=== PATIENT | male | born 1940 | race Caucasian/White ===

== ENCOUNTER 2016-10-15 11:26 | Day surgery (SDC) | payer MEDICARE ==
[~2016-10-15 11:26] MED LIST: Lactated Ringers 1,000 ML IV SCH; Lidocaine 1%/Sod Bicarbonate in NS 8.4% 1 ML Syringe IV PRN; Sodium Chloride 0.9% 10 ML Syringe FLUSH PRN
[2016-10-15] MEDS ORDERED: Ropivacaine 0.5% 5 MG/ML 30 ML SDV ONE (12:10)
[2016-10-15] MEDS ORDERED: EPINEPHrine 1:1000 1 MG/ML SDV ONE (12:10)
[2016-10-15] MEDS ORDERED: EPINEPHrine 1:1000 1 MG/ML 30 ML MDV ONE (12:14)
[2016-10-15] MEDS ORDERED: Bupivacaine 0.25% 30 ML SDV ONE (12:15)
--- NOTE | 2016-10-15 12:28 | PCM.PREANE ---
Preanesthetic Assessment - Anesthesia/Transfusion/Family Hx Anesthesia History: Prior Anesthesia Without Reaction Type of Anesthesia Reaction: Other (see below) Family History of Anesthesia Reaction: No Transfusion History: Prior Transfusion Without Reaction Type of Transfusion Reactions: Reports: Other (see below) - Review of Systems General: No Symptoms Pulmonary: Shortness of Breath (on occasion) Cardiovascular: Chest Pain (chest at rest on occasion, has used nitroglycerin 1time 1 month ago, PCP aware of all of this), Other (htn, s/p AORTIC ANEURYSM REPAIR VIA STENT PLACEMENT) Gastrointestinal: Other (reflux) Neurological: No Symptoms, Numbness (IN FEET S/P BACK SURGERIES) Other: Reports: Easy Bruising (PLAVIX USER, OFF 7 DAYS) - Physical Assessment NPO Status Date: 10/15/16 NPO Status Time: 05:30 Pulse: 72 O2 Sat by Pulse Oximetry: 94 Respiratory Rate: 16 Blood Pressure: 130/73 Temperature: 97.8 C ASA Class: 3 Mental Status: Alert & Oriented x3 Airway Class: Mallampati = 2 Dentition: Reports: Normal Dentition Thyro-Mental Finger Breadths: 3 Mouth Opening Finger Breadths: 3 ROM/Head Extension: Limited/Partial Lungs: Clear to auscultation, Normal respiratory effort Cardiovascular: Regular Rate, Regular Rhythm - Lab Values: Laboratory Last Values MRSA (PCR) Negative 10/02/16 14:36 - Allergies Allergies/Adverse Reactions: Allergies Allergy/AdvReac Type Severity Reaction Status Date / Time No Known Allergies Allergy Verified 10/14/16 14:06 - Blood Blood Available: No Product(s) Available: None - Anesthesia Plan Pre-Op Medication Ordered: None Beta Parul: Metoprolol Med Last Dose Date: 10/15/16 Med Last Dose Time: 08:00 - Acknowledgements Anesthesia Type Planned: General Anesthesia Pt an Appropriate Candidate for the Planned Anesthesia: Yes Alternatives and Risks of Anesthesia Discussed w Pt/Guardian: Yes Pt/Guardian Understands and Agrees with Anesthesia Plan: Yes PreAnesthesia Questionnaire HEENT History: Reports: Other (see below) Other HEENT History: left eustachian tube dysfunction, crystal lens surgery Cardiovascular History: Reports: Aneurysm, CAD, High cholesterol, Hypertension, Stents Other Cardiovascular History: aortic anurysms, peripheral artery disase Respiratory History: Reports: SOB Genitourinary History: Reports: Chronic renal insuffiency, Other (see below) Other Genitourinary History: renal artery stent, frequency [place] [facility] History: Reports: None Musculoskeletal History: Reports: Back pain, chronic Other Musculoskeletal History: shoulder impingement Neurological History: Reports: None Psychiatric History: Reports: Other (see below) Other Psychiatric History: insomnia Endocrine/Metabolic History: Reports: None Hematologic History: Reports: None Immunologic History: Reports: None Oncologic (Cancer) History: Reports: None Dermatologic History: Reports: None - Past Surgical History Cardiovascular Surgical History: Reports: Other (see below) Other Cardiovascular Surgeries/Procedures: aortic endograft, bypass, stent placements GI Surgical History: Reports: Colonoscopy - SUBSTANCE USE Smoking Status *Q: Former Smoker Recreational Drug Use History: No - HOME MEDS Home Medications: Home Meds Aspirin/Calcium Carbonate/Mag [Aspirin Buffered 325 mg Tab] 325 mg PO DAILY [History] Cholecalciferol (Vitamin D3) [Vitamin D3] 2,000 unit PO DAILY 10/14/16 [History] Clopidogrel [Plavix] 75 mg PO DAILY 10/14/16 [History] Lansoprazole [Prevacid] 15 mg PO BID 10/14/16 [History] Lisinopril 20 mg PO DAILY 10/14/16 [History] Metoprolol Succinate 50 mg PO BID 10/14/16 [History] NIFEdipine [Procardia Xl] 60 mg PO DAILY 10/14/16 [History] Naproxen Sodium [Aleve] 1 - 3 tab PO Q6H PRN 10/14/16 [History] Rosuvastatin Calcium [Crestor] 40 mg PO BEDTIME 10/14/16 [History] Ubidecarenone [Coq-10] 100 mg PO DAILY 10/14/16 [History] Zolpidem [Ambien] 10 mg PO BEDTIME 10/14/16 [History] atorvaSTATin [Lipitor] 40 mg PO DAILY 10/14/16 [History] oxyCODONE HCl/Acetaminophen [Percocet 2.5-325 mg Tablet] 1 - 2 each PO Q6H PRN # 40 tablet 10/15/16 [Rx] - CURRENT (IN HOUSE) MEDS Current Meds: Current Medications Lactated Ringer's (Ringers, Lactated) 1,000 mls @ 125 mls/hr IV ASDIRECTED KARIS Stop: 10/15/16 23:00 Lidocaine/Sodium Bicarbonate (Buffered Lidocaine 1% In Ns 8.4%) 0.25 ml IV ONETIME PRN PRN Reason: Prior to IV Start Stop: 10/15/16 18:00 Sodium Chloride (Saline Flush) 10 ml FLUSH ASDIRECTED PRN PRN Reason: Keep Vein Open Stop: 10/15/16 18:00
[2016-10-15] MEDS ORDERED: Ondansetron 4 MG/2 ML SDV IVPUSH PRN (12:34)
[2016-10-15] MEDS ORDERED: fentaNYL 100 MCG/2 ML SDV IVPUSH PRN (12:34)
[2016-10-15] MEDS ORDERED: Lidocaine 1% 2 ML ONE (12:34)
[2016-10-15] MEDS ORDERED: fentaNYL 100 MCG/2 ML SDV ONE ×2 (12:55→13:48)
--- NOTE | 2016-10-15 13:20 | PCM.SN ---
- Free Text/Narrative Note: Note: 10/15/2016 1300 140/84 67 100% 16 Surgeon and pt request post-op pain control for right shoulder surgery risk of block failure, facial numbness, site infection, and chronic pain discussed with pt and agreed to proceed. All standard monitors est. EKG, BP, Pulse Ox, 2ml O2 and 2ml fentanyl pre-op dx. right shoulder pain post-op dx right shoulder arthroscopy pt for interscalene block placement all standard monitors est. pt ID time out performed IV sedation 1ml fentanyl, 2L NC O2, sterile prep and drape of right neck and shoulder U/S placed with visualization of brachial plexus from clavicle to cricoid local skin infiltration 22ga. Stimplex A insulated needle visualized at brachial plexus nerve stimulator at .9 Dee Amps stop at .3 Dee Amps with good bicep twitch with 1ml NaCl and lose of twitch neg aspirations every 5ml of 0.5% ropivacaine and 1:200,000 epi total of 30ml injected all done with U/S guidance needle withdrawn no complications noted pt tolerated procedure well block settling in start procedure at 1244 end procedure at 1257 148/80 68 100% 14
[2016-10-15] MEDS ORDERED: Ondansetron 4 MG/2 ML SDV ONE ×2 (13:48→16:08)
[2016-10-15] MEDS ORDERED: Sodium Chloride 0.9% 10 ML ONE (13:48)
[2016-10-15] MEDS ORDERED: ceFAZolin 1 GM Vial ONE ×2 (13:48)
[2016-10-15] MEDS ORDERED: Rocuronium 50 MG/5 ML Vial ONE (13:48)
[2016-10-15] MEDS ORDERED: Propofol 200 MG/20 ML SDV ONE (13:48)
[2016-10-15] MEDS ORDERED: ePHEDrine/Normal Saline 25 MG/5 ML Syringe ONE (14:41)
[2016-10-15] MEDS ORDERED: Neostigmine Methylsulfate 10 MG/10 ML MDV ONE (16:05)
--- NOTE | 2016-10-15 16:28 | PCM.POSTAN ---
POST ANESTHESIA ASSESSMENT - MENTAL STATUS Mental Status: alert, oriented - VITAL SIGNS Pulse Rate: 80 SaO2: 96 Resp Rate: 16 Blood Pressure: 143/80 Temperature: 36.8 C - RESPIRATORY Respiratory Status: respiratory rate WNL, airway patent, O2 saturation stable, supplemental oxygen - CARDIOVASCULAR CV Status: pulse rate WNL, blood pressure stable - GASTROINTESTINAL GI Status: no symptoms - PAIN Pain Score: 0 - POST OP HYDRATION Hydration Status: adequate & stable
--- NOTE | 2016-10-15 17:57 | PCM48HPAN ---
Post Anesthesia Note - EVALUATION WITHIN 48HRS OF ANESTHETIC Vital Signs in Normal Range: Yes Patient Participated in Evaluation: Yes Respiratory Function Stable: Yes Airway Patent: Yes Cardiovascular Function Stable: Yes Hydration Status Stable: Yes Pain Control Satisfactory: Yes Nausea and Vomiting Control Satisfactory: Yes Mental Status Recovered: Yes
[2016-10-15 19:36] VITALS: BP 149/93
--- NOTE | 2016-10-22 12:41 | PCM.OPNOTE ---
- General Post-Op/Procedure Note Date of Surgery/Procedure: 10/15/16 Operative Procedure(s): right shoulder video arthroscopy with rotator cuff repair and biceps tenotomy Pre Op Diagnosis: right shoulder rotator cuff tear with biceps tendinopathy Post-Op Diagnosis: Same Anesthesia Technique: General ET tube, Regional block Primary Surgeon: Khanh García Anesthesia Provider: Dionne Gary Statement Distribution Clerk: Nydia Garcia EBL in mLs: 10 Complications: None Condition: Good
--- NOTE | 2016-10-25 09:33 | OR ---
DATE OF OPERATION: 10/15/2016 SURGEON: Khanh García MD OPERATION PERFORMED: Right shoulder video arthroscopy with rotator cuff repair and biceps tenotomy. PREOPERATIVE DIAGNOSIS: Right shoulder rotator cuff tear with biceps tendinopathy. POSTOPERATIVE DIAGNOSIS: Right shoulder rotator cuff tear with biceps tendinopathy. ANESTHESIA: General endotracheal intubation with regional block. ANESTHESIA PROVIDER: Dionne Gary CRNA. ROLL PLUGGER: Nydia Garcia PA-C. ESTIMATED BLOOD LOSS: Less than 10 mL. COMPLICATIONS: None. CONDITION: Stable. DESCRIPTION OF PROCEDURE: The patient was identified in the preop holding area where proper site was marked and identified by the surgeon. The patient was taken back to the operating theater where after adequate anesthesia, the patient was placed in a lazy left lateral decubitus position. All bony prominences were well padded. The right shoulder was then sterilely prepped and draped in the usual sterile fashion. OR time-out was performed. The patient received 2 g IV Ancef and 12 pounds of traction was applied to the right upper extremity. At this time, posterior portal was created. Scope trocar was introduced through the posterior portal. Glenohumeral joint was visualized. At this time with the use of a spinal needle, anterior portal was created from an outside in technique. The biceps tendon was showed to be significantly frayed throughout intra-articularly with no good place to really be able to pass suture through the tendon. At this time, it was decided biceps tenotomy would be the best option so biceps tenotomy was performed. 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 There were no loose or foreign bodies in the axillary recess. There was noted to be a large tear to the supraspinatus. At this time, the scope trocar was removed and placed in subacromial space. The subacromial limited bursectomy was then carried out. The patient was found to have no significant spurring of the AC joint for the acromion. The tear was identified. At this time, a good bony bleeding bed was prepared with the use of a resector. At this time, it was decided to do rotator cuff repair. The spinal needle was used for localization of medial row repair. The punch was then used and a 4.75 Arthrex SwiveLock anchor was placed medially; 2 limbs of FiberWire, 2 limbs of FiberTape were then passed. The limbs of the FiberWire were then tied and all 4 limbs were brought out laterally for a lateral row with another 4.75 SwiveLock Arthrex anchor. At this time, it was found to have adequate watertight repair. Any further bursa was removed. At this time, it was found to have adequate watertight repair excess saline was drained from the shoulder. 3-0 nylon simple suture was used for closure of the skin. The patient was placed in a sterile soft dressing and a pillow sling. The patient tolerated the procedure well and sent to PACU in stable condition. SETH /[id number]
== END 2016-10-15 19:10 | disposition home or self-care (01) ==
LOC: JD.SDS 11:26
PROVIDERS: ATTEND Orthopaedic Surgery
PROC: 0LQ14ZZ Repair Right Shoulder Tendon, Percutaneous Endoscopic Approach (ICD-10-PCS; principal; 2016-10-15)
PROC: 0LS14ZZ Reposition Right Shoulder Tendon, Percutaneous Endoscopic Approach (ICD-10-PCS; 2016-10-15)
DX: M75.101 Unspecified rotator cuff tear or rupture of right shoulder, not specified as traumatic (principal); M75.21 Bicipital tendinitis, right shoulder; M94.211 Chondromalacia, right shoulder; I12.9 Hypertensive chronic kidney disease with stage 1 through stage 4 chronic kidney disease, or unspecified chronic kidney disease; N18.9 Chronic kidney disease, unspecified; I25.10 Atherosclerotic heart disease of native coronary artery without angina pectoris; E78.5 Hyperlipidemia, unspecified; E78.00 Pure hypercholesterolemia, unspecified; Z87.891 Personal history of nicotine dependence; Z79.82 Long term (current) use of aspirin; Z79.02 Long term (current) use of antithrombotics/antiplatelets; Z79.899 Other long term (current) drug therapy; Z98.890 Other specified postprocedural states; M25.511 Pain in right shoulder
CPT/HCPCS: 29827; 29828; 87641; C1713; J0171; J0690; J2405; J2710; J2795; J3010; J7050; J7120; 01630; 64415; J2704; J3490